=== PATIENT | male | born 1945 | race Caucasian/White ===

== ENCOUNTER 2017-06-27 09:26 | Outpatient (CLI) | payer MEDICARE, MEDICAID ==
--- NOTE | 2017-06-27 11:13 | RAD ---
PA AND LATERAL CHEST: History: Dyspnea. FINDINGS: Comparison is made with 01-21-16. The heart size is normal. The lungs are expanded without focal areas of consolidation, pneumothorax, or pleural effusions. There are degenerative changes of the spine. IMPRESSION: No radiographic evidence of acute cardiopulmonary process. POS: [facility]
== END 2017-06-27 09:27 | disposition home or self-care (01) ==
LOC: CP 09:26
PROVIDERS: ATTEND Internal Medicine Critical Care Medicine
DX: R06.09 Other forms of dyspnea (principal)
CPT/HCPCS: 71020; 94060; 94729

== ENCOUNTER 2017-07-30 12:44 | Outpatient (CLI) | payer MEDICARE, MEDICAID ==
--- NOTE | 2017-07-30 14:48 | CT ---
CT CHEST WITHOUT CONTRAST: HISTORY: R91.1 (pulmonary nodule). COMPARISON: Chest radiograph from 06/27/[address] from 10/16/2016. FINDINGS: Bilateral pulmonary nodules are unchanged. The largest nodule is in the posterior segment, left lowe r lobe, measuring under 7 mm, unchanged. No focal air space consolidation, pneumothorax, or effusion . No suspicious pulmonary nodule. No pericardial effusion. Moderate coronary artery calcifications. Small sliding hiatal hernia with posterior diaphragmatic hernia containing fat. There is a calcification in the posterior cortex, superior pole, left kidney, incompletely evaluated. Dense mitral annular calcifications. Moderate degenerative disk space disease, mid thoracic spine. Moderate degenerative disease of the glenohumeral joints and acromioclavicular joints. No displaced rib fracture. IMPRESSION: No significant change in the scattered pulmonary nodules. No new pulmonary nodule. No acute intrath oracic abnormality. POS: [facility]
== END 2017-07-30 12:45 | disposition home or self-care (01) ==
LOC: CT 12:44
PROVIDERS: ATTEND Internal Medicine Critical Care Medicine
DX: R91.1 Solitary pulmonary nodule (principal); R91.8 Other nonspecific abnormal finding of lung field
CPT/HCPCS: 71250

== ENCOUNTER 2017-08-26 12:11 | Emergency (ER) | payer MEDICARE, MEDICAID ==
--- NOTE | 2017-08-26 13:57 | RAD ---
RIGHT ELBOW 4 VIEWS: HISTORY: A 71-year-old male with a history of right elbow pain since Sunday. FINDINGS: Marked soft tissue swelling over the region of the olecranon with some scattered soft tissue calcific ation or ossification changes, probably certainly in part evidence for olecranon bursitis as well as some triceps tendon enthesophytic change. There are also prominent enthesophytic changes involving t he medial and lateral epicondylar regions and arthrosis changes of the elbow joint without acute frac ture or dislocation. IMPRESSION: Arthrosis and degenerative changes. Enthesophytic changes. Soft tissue swelling over the region of the olecranon with some scattered very minimal calcific or ossific changes within the soft tissue swe lling, possibly olecranon bursitis or other focal soft tissue swelling process. No acute fracture or dislocation. POS: [facility]
[2017-08-26] MEDS ORDERED: cefTRIAXone\\ROCEPHIN 1 GM VIAL IM SCH (14:00)
[2017-08-26] MEDS ORDERED: Lidocaine 1% PF 5 ML VIAL FS SCH (14:00)
[2017-08-26] MEDS ORDERED: Lidocaine 1% PF 5 ML VIAL ONE (14:17)
== END 2017-08-26 14:40 | disposition home or self-care (01) ==
LOC: ERS 12:11
DX: M25.521 Pain in right elbow (principal); E03.9 Hypothyroidism, unspecified; E78.5 Hyperlipidemia, unspecified; I10 Essential (primary) hypertension; F32.9 Major depressive disorder, single episode, unspecified; Z79.899 Other long term (current) drug therapy; Z79.82 Long term (current) use of aspirin
CPT/HCPCS: 96372; J0696; J2001

== ENCOUNTER 2017-10-08 11:55 | Outpatient (CLI) | payer MEDICARE, MEDICAID ==
--- NOTE | 2017-10-08 15:41 | CT ---
CT ANGIOGRAM ABDOMEN WITH IV CONTRAST AND 3D RECONSTRUCTIONS: Date: 10/08/17 HISTORY: Essential primary hypertension. Uncontrolled hypertension. Shortness of breath with exertion for w chao andujar. COMPARISON: None available. FINDINGS: There is scattered atherosclerotic vascular calcification seen in the abdominal aorta and visualized most proximal common iliac arteries. There are single patent bilateral renal arteries noted. There is mild narrowing at the origin of the celiac artery. The superior mesenteric artery is patent. There appears to be critical stenosis involving the origin of the inferior mesenteric artery. Only the most proximal common iliac arteries are imaged, which are normal in caliber where seen. There is minimal bibasilar atelectasis. The liver, spleen, pancreas, and bilateral kidneys demonstrate a normal CT appearance. There is mild, nonspecific thickening of the right adrenal gland without nodule or mass present. Degenerative changes are seen in the spine. There is a wedge-shaped compression fracture of the L1 ve rtebral body and the degree of height loss is stable compared to assembler molded frames image from CT chest on 7. Multilevel degenerative changes are seen in the visualized lumbar spine, and to a lesser degree, l ower thoracic spine. IMPRESSION: 1. Single patent bilateral renal arteries. 2. 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 The superior mesenteric artery is patent. 3. Tiny subcentimeter too small to characterize hypodense lesion inferior pole right kidney. Kidneys enhance symmetrically. POS: [facility]
[2017-10-08] MEDS ORDERED: Iopamidol 370 76% 100 ML VIAL ONE (16:45)
== END 2017-10-08 11:56 | disposition home or self-care (01) ==
LOC: CT 11:55
PROVIDERS: ATTEND Physician Assistant
DX: I10 Essential (primary) hypertension (principal); K55.1 Chronic vascular disorders of intestine; N28.89 Other specified disorders of kidney and ureter
CPT/HCPCS: 74175; 82565

== ENCOUNTER 2017-10-15 08:33 | Outpatient (CLI) | payer MEDICARE, MEDICAID ==
--- NOTE | 2017-10-15 12:13 | CT ---
NONCONTRAST CT OF THE THORAX: Date: 10/15/17 INDICATION: Follow-up pulmonary nodule. COMPARISON: CTA of the thorax dated 03/23/[address] of the thorax dated 07/30/17. FINDINGS: The 7.0 mm left lower lobe pulmonary nodule on image 37 of series 3 is stable to the comparison from March 2016. The additional smaller, sub-4 mm pulmonary nodules seen scattered throughout both teresa gs are stable. The most conspicuous is seen within the right middle lobe on image 33 of series 3. No new pulmonary nodules identified. There are moderately prominent mitral annular calcifications. There are moderate coronary artery calcifications. No pathologically enlarged lymph node is grossly eviden t. Visualized upper abdomen appears unchanged from the most recent comparison dated 07/30/17. There is scattered degenerative and osteoarthritic change. IMPRESSION: Stable scattered pulmonary nodules. A follow-up examination in 6 months is recommended for documentat ion of 2 year's worth of stability. POS: [facility]
== END 2017-10-15 08:34 | disposition home or self-care (01) ==
LOC: CT 08:33
PROVIDERS: ATTEND Internal Medicine Critical Care Medicine
DX: R91.1 Solitary pulmonary nodule (principal); R91.8 Other nonspecific abnormal finding of lung field
CPT/HCPCS: 71250

== ENCOUNTER 2018-09-20 00:38 | Outpatient (CLI) | payer MEDICARE, MEDICAID ==
[2018-09-20 10:51] LABS: #Eosinphils 0.2 thou/uL (0.0-0.7); #Lymphocytes 0.9 thou/uL (1.20-3.40); #Monocytes 0.6 thou/uL (0.11-0.59); #Neutrophils 5.8 thou/uL (1.40-6.50); %Eosinophils 3.3 % (0.0-10.0); %Lymphocytes 11.8 % (21.0-51.0); %Monocytes 7.3 % (0.0-10.0); %Neutrophils 77.6 % (42.0-75.0); Hemoglobin 15.7 g/dL (14.0-18.0); Mean Corpuscular HGB CONC 34.2 g/dL (32.0-36.0); Mean Corpuscular Hemoglobin 33.3 pg (27.0-31.0); Mean Corpuscular Volume 97.4 fL (78.0-98.0); Mean Platelet Volume 6.3 fL (7.4-10.4); Platelet Count 262 thou/uL (130-400); Red Blood Cell (RBC) Count 4.72 mill/uL (4.70-6.10); White Blood Cell (WBC) Count 7.5 thou/uL (4.8-10.8)
[2018-09-20 11:14] LABS: Anion Gap 19 mmol/L (10-20); BUN (Urea Nitrogen) 25 mg/dL (8.4-25.7); Calc. Creatinine Clearance 0 mL/min (70-130); Calcium 10.3 mg/dL (7.8-10.44); Carbon Dioxide 24 mmol/L (23-31); Chloride 86 mmol/L (98-107); Estimated GFR-MDRD 53; Glucose 92 mg/dL (80-115); Potassium 3.6 mmol/L (3.5-5.1); Sodium 125 mmol/L (136-145)
== END 2018-09-20 00:39 | disposition home or self-care (01) ==
LOC: LABBT 00:38
PROVIDERS: ATTEND Internal Medicine Cardiovascular Disease
DX: Z01.812 Encounter for preprocedural laboratory examination (principal); R06.02 Shortness of breath
CPT/HCPCS: 80048; 85025

== ENCOUNTER → 2018-09-23 | Day surgery (SDC) | payer MEDICARE, MEDICAID ==
[2018-09-20 10:15] VITALS: BMI 30.7
[~2018-09-23] MED LIST: Fentanyl 100 MCG/2 ML VIAL ONE; Heparin 10,000 UNITS/1 ML VIAL ONE; Iopamidol 370 76% 100 ML VIAL ONE; Midazolam HCl 2 mg/2 ml Vial ONE; Nitroglycerin 100MG/250ML BOT 250 ML ONE
== END ==
LOC: CCL 05:41
PROVIDERS: ATTEND Internal Medicine Cardiovascular Disease
PROC: 4A023N7 Measurement of Cardiac Sampling and Pressure, Left Heart, Percutaneous Approach (ICD-10-PCS; principal; 2018-09-23)
PROC: B2111ZZ Fluoroscopy of Multiple Coronary Arteries using Low Osmolar Contrast (ICD-10-PCS; 2018-09-23)
DX: I25.10 Atherosclerotic heart disease of native coronary artery without angina pectoris (principal); M10.9 Gout, unspecified; I10 Essential (primary) hypertension; K21.9 Gastro-esophageal reflux disease without esophagitis; F32.9 Major depressive disorder, single episode, unspecified; E78.00 Pure hypercholesterolemia, unspecified; Z79.82 Long term (current) use of aspirin; Z79.899 Other long term (current) drug therapy
CPT/HCPCS: 36415; 85347; 92978; 93458; 99152; 99153; C1753; C1769; C1887; J1644; J2250; J3010; Q9967

== ENCOUNTER 2018-10-14 08:42 | Outpatient (CLI) | payer MEDICARE, MEDICAID ==
--- NOTE | 2018-10-14 10:14 | RAD ---
TWO VIEWS CHEST: HISTORY: Dyspnea. FINDINGS: PA and lateral views of the chest are obtained on 10/14/2018. Comparison is made to previous exam fro m 01/21/2016. Two views chest demonstrate the lungs to be well aerated. No evidence of active intrathoracic diseas e is seen. No evidence of effusions, pneumonia, or pneumothorax seen. IMPRESSION: Unremarkable 2 views chest. POS: [facility]
== END 2018-10-14 08:43 | disposition home or self-care (01) ==
LOC: RAD 08:42
PROVIDERS: ATTEND Internal Medicine Critical Care Medicine
DX: R06.00 Dyspnea, unspecified (principal)
CPT/HCPCS: 71046

== ENCOUNTER 2020-04-29 07:35 | Outpatient (CLI) | payer MEDICARE, MEDICAID, OTHER ==
[2020-04-29 14:40] LABS: INR-International Normal Ratio 0.9; Prothrombin Time 12.8 sec (12.0-14.7)
[2020-04-29 15:02] LABS: #Basophils 0.1 thou/uL (0.0-0.2); #Eosinphils 0.4 thou/uL (0.0-0.7); #Monocytes 0.7 thou/uL (0.11-0.59); %Basophils 0.9 % (0.0-1.0); %Eosinophils 3.9 % (0.0-10.0); %Lymphocytes 10.6 % (21.0-51.0); %Monocytes 7.7 % (0.0-10.0); Hemoglobin 14.4 g/dL (14.0-18.0); Mean Corpuscular HGB CONC 35.8 g/dL (32.0-36.0); Mean Corpuscular Hemoglobin 35.4 pg (27.0-31.0); Mean Corpuscular Volume 99.1 fL (78.0-98.0); Mean Platelet Volume 7.2 fL (7.4-10.4); Platelet Count 342 thou/uL (130-400); RBC Distribution Width 13.2 % (11.5-14.5); Red Blood Cell (RBC) Count 4.05 mill/uL (4.70-6.10); White Blood Cell (WBC) Count 9.1 thou/uL (4.8-10.8)
[2020-04-29 15:19] LABS: Bilirubin Negative (Negative); Blood, Urine Trace (Negative); Clarity Clear (Clear); Glucose, Urine (Dipstick) Normal (Negative); Ketone, Urine Negative (Negative); Leukocyte Negative Leu/uL (Negative); Nitrite Negative (Negative); Protein, Urine (Dipstick) 30 mg/dL (Neg-Trace); RBC/HPF 0-3 HPF (0-3); Squamous Epithelial 0-3 HPF (0-3); Urobilinogen Normal mg/dL (Less than 2); WBC/HPF 0-3 HPF (0-3)
[2020-04-29 15:22] LABS: Anion Gap 18 mmol/L (10-20); BUN (Urea Nitrogen) 29 mg/dL (8.4-25.7); Calc. Creatinine Clearance 0 mL/min (70-130); Calcium 9.6 mg/dL (7.8-10.44); Carbon Dioxide 26 mmol/L (23-31); Chloride 92 mmol/L (98-107); Estimated GFR-MDRD 27; Glucose 120 mg/dL (83-110); Potassium 3.1 mmol/L (3.5-5.1); Sodium 133 mmol/L (136-145)
[2020-04-29 15:23] LABS: Bacteria/HPF 1+ HPF (None Seen)
--- NOTE | 2020-04-29 18:14 | EKG ---
Test Reason : PREOP Blood Pressure : / mmHG Vent. Rate : 087 BPM Atrial Rate : 087 BPM P-R Int : 186 ms QRS Dur : 088 ms QT Int : 374 ms P-R-T Axes : 042 -42 070 degrees QTc Int : 450 ms Normal sinus rhythm Left axis deviation Left ventricular hypertrophy with repolarization abnormality Abnormal ECG Confirmed by DR. Rose Marie CABAN (3) on 04/29/2020 6:13:27 PM Referred By: BRENDA Confirmed By:DR. Rose Marie CABAN
[2020-04-30 12:25] LABS: SARS-CoV-2 MS2 Positive; SARS-CoV-2 N Gene Negative; SARS-CoV-2 S Gene Negative; SARS-CoV-2 by NAA Not Detected (NotDetected); SARS-CoV-2 orf1ab Negative
== END 2020-04-29 07:36 | disposition home or self-care (01) ==
LOC: LABBT 07:35
PROVIDERS: ATTEND Orthopaedic Surgery
DX: Z01.818 Encounter for other preprocedural examination (principal); Z20.828 Contact with and (suspected) exposure to other viral communicable diseases; M17.11 Unilateral primary osteoarthritis, right knee
CPT/HCPCS: 80048; 81001; 85025; 85610; 87081; 93005; U0003; 87635; 93010

== ENCOUNTER 2020-04-29 11:00 | Inpatient (IN) | payer MEDICARE, MEDICAID, OTHER ==
[2020-05-03 13:40] VITALS: BMI 29.9
[2020-05-04] MEDS ORDERED: diphenhydrAMINE 25 MG CAP PO PRN (07:01)
[2020-05-04] MEDS ORDERED: Ondansetron PF 4 MG/2 ML Vial IVP PRN ×2 (07:01→09:30)
[2020-05-04] MEDS ORDERED: Promethazine HCl 25 MG/ML VIAL IM PRN ×2 (07:01→09:30)
[2020-05-04] MEDS ORDERED: Zolpidem Tartrate 5 MG TAB PO PRN ×2 (07:01→09:30)
[2020-05-04] MEDS ORDERED: HYDROcodone/Acetaminophen 10/325 mg Tablet PO PRN ×3 (07:01→09:30)
[2020-05-04] MEDS ORDERED: Acetaminophen 325 MG TAB PO PRN (07:01)
[2020-05-04] MEDS ORDERED: Vancomycin 1.5 GRAM/300 ML BAG ONE (07:37)
[2020-05-04] MEDS ORDERED: Sodium Chloride 0.9% 100 ML ONE (07:37)
[2020-05-04] MEDS ORDERED: Tranexamic Acid 1,000 MG/10 ML VIAL ONE (07:37)
[2020-05-04 08:25] LABS: Anion Gap 17 mmol/L (10-20); BUN (Urea Nitrogen) 23 mg/dL (8.4-25.7); Calc. Creatinine Clearance 50 mL/min (70-130); Calcium 10.1 mg/dL (7.8-10.44); Carbon Dioxide 28 mmol/L (23-31); Chloride 94 mmol/L (98-107); Estimated GFR-MDRD 36; Glucose 99 mg/dL (83-110); Sodium 136 mmol/L (136-145)
[2020-05-04 08:32] LABS: Potassium 2.7 mmol/L (3.5-5.1)
[2020-05-04] MEDS ORDERED: Ropivacaine 0.2% HCl/PF 20 ML ONE (08:33)
[2020-05-04] MEDS ORDERED: Fentanyl 100 MCG/2 ML VIAL ONE ×4 (08:33→12:12)
[2020-05-04] MEDS ORDERED: Midazolam HCl 2 mg/2 ml Vial ONE (08:33)
[2020-05-04] MEDS ORDERED: Lisinopril 20 MG TAB PO SCH (09:00)
[2020-05-04] MEDS ORDERED: Aspirin Chewable 81 MG TAB PO SCH (09:00)
[2020-05-04] MEDS ORDERED: Fenofibrate Nanocrystallized 145 MG TAB PO SCH (09:00)
[2020-05-04] MEDS ORDERED: Furosemide 20 MG TAB PO SCH (09:00)
[2020-05-04] MEDS ORDERED: Chlorthalidone 25 MG TAB PO SCH (09:00)
[2020-05-04] MEDS ORDERED: Fentanyl 100 MCG/2 ML VIAL IV PRN (09:23)
[2020-05-04] MEDS ORDERED: Ropivacaine HCl/PF 250 ML in Premix Bag 1 BAG NERVE BLCK SCH (09:30)
[2020-05-04] MEDS ORDERED: traMADol HCl 50 MG TAB PO PRN ×2 (09:30)
[2020-05-04] MEDS ORDERED: PROPOFOL 200 MG/20 ML VIAL ONE (12:42)
[2020-05-04] MEDS ORDERED: Dexamethasone 20 MG/5 ML VIAL ONE (12:42)
[2020-05-04] MEDS ORDERED: Lidocaine 1% PF 5 ML VIAL ONE (12:42)
[2020-05-04] MEDS ORDERED: EPHEDRINE 25 MG/5 ML SYRINGE ONE (12:42)
[2020-05-04] MEDS ORDERED: Bupivacaine HCl 0.5%/Epinephrine 1:200,000/PF 30 ml Vial ONE (12:42)
[2020-05-04] MEDS ORDERED: Ondansetron PF 4 MG/2 ML Vial ONE (12:42)
[2020-05-04] MEDS ORDERED: Ropivacaine 0.2% HCl/PF (40 MG/20 ML VIAL) ONE (12:42)
--- NOTE | 2020-05-04 13:13 | RAD ---
RIGHT KNEE 2 VIEWS: Date: 05/04/2020 HISTORY: Postop knee replacement. FINDINGS: Postop changes are noted. Knee prosthesis is noted. Components appear in adequate position and alignm ent. IMPRESSION: Postop right knee. POS: [facility]
[2020-05-04] MEDS ORDERED: Ketorolac Tromethamine 30 MG/ML VIAL IVP SCH (14:00)
[2020-05-04] MEDS ORDERED: CEFAZOLIN 2 GM in Premix Bag 1 BAG IVPB SCH ×2 (16:00→20:00)
--- NOTE | 2020-05-04 16:28 | OP ---
DATE OF PROCEDURE: 05/04/2020 This is Jose Antonio Sanchez PA-C dictating a report for Miguel Gracia MD. 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 PROCEDURE PERFORMED: Cemented cruciate-sparing computer-assisted navigated right total knee arthroplasty. [employer]ATIONS COORDINATOR: Jose Antonio Sanchez PA-C ANESTHESIA: General via LMA, augmented with indwelling adductor canal block and a single-shot sciatic block. COMPONENTS USED: [employer] Triathlon size 5 cemented cruciate-sparing femoral component with a cemented size 5 primary tibial base plate, 9-mm polyethylene fixed bearing insert, and a A35 patella button. FINDINGS: End-stage severe degenerative tricompartmental disease, [id number] arthrosis, periarticular osteophyte formation, large serous effusion consistent with gouty arthritis, hypertrophic synovium and degenerative changes consistent with a lateral compartment disease and degenerative genu valgum. ESTIMATED BLOOD LOSS: 100. TOURNIQUET TIME: 60 minutes. DRAINS: None. SPECIMENS: None. COMPLICATIONS: None. COUNTS: Correct. INPUT: 1000 mL crystalloid. OUTPUT: None measured. No Jacques placed. INDICATION FOR PROCEDURE: Kurtis is a 74-year-old white male, who has had progressive right knee pain walking for the last 5 to 7 years. He has failed conservative management and elected to proceed with total knee arthroplasty as definitive treatment of his pain. PROCEDURE IN DETAIL: After informed consent was obtained in the preoperative holding area, the patient was taken to the operative suite where general anesthesia was induced. Once adequate level of general anesthesia was obtained, the patient was positioned and a well-padded tourniquet was placed around the proximal thigh. The lower extremity was then prepped and draped in the usual sterile fashion. Prior to exsanguination, a time-out was called and all members of the surgical team agreed upon site, surgeon, and patient. The extremity was then exsanguinated and the tourniquet was raised. A midline longitudinal incision was then made directly over the patella extending 2 fingerbreadths above the superior pole of the patella and 2 fingerbreadths inferior to the inferior patellar pole of the patella. Deeper subcutaneous layers were dissected sharply and local bleeding was controlled with Bovie electrocautery. A quad tendon longitudinal split was then made sharply and a median parapatellar arthrotomy was carried out both sharp and with Bovie electrocautery, carried down to 1 fingerbreadth medial to the tibial tubercle. The knee was then placed into flexion and the patella was everted nicely, and a copious fat pad ectomy was performed, allowing for greater exposure of the tibia. The computer-assisted distal femoral fiducial was then placed and pinned firmly, and the distal femoral cutting guide was pinned firmly into place. The oscillating saw was then used to remove the appropriate amount of bone. The 4-in-1 cutting block was then placed on the distal femur and the oscillating saw was used to remove the appropriate amount of bone off the anterior, posterior, and chamfer cuts. After completion of bone cuts, the anterior cruciate ligament was resected sharply and the posterior cruciate ligament retractor was placed and the tibia was subluxed for better exposure. Partial meniscectomies were carried out, and the tibial computer-assisted fiducial was pinned, and the cutting guide was placed. Oscillating saw was then used to remove the bone, with Hohmann retractors used to take care and protect the collateral ligaments. After the tibial resection was performed, a laminar tax senior associate was placed in between the freshened bone cuts. The knee placed at 90 degrees and further bilateral meniscectomies were carried out, and the curved osteotome and curettage were used to remove any excess bone spurs in the posterior compartment. The trial femoral component, tibial baseplate were placed with the appropriate polyethylene trial insert with an appropriate polyethylene spacer and patellar button. The knee was taken through full range of motion with flexion and extension from 0 to 90 degrees and patellar broach squarely in the trochlea without any squinting or subluxation noted. The knee was also stable to varus and valgus stressing at 0, 15, 45, and 90 degrees of flexion. The drawer was negative. All trial components were then removed and the keel punch was used to provide the appropriate defect in the tibia with a mallet. The freshened bone cuts were copiously irrigated with pulsatile lavage of about 1.5 L to remove all excess debris. The freshened bone cuts were then dried with suction and lap sponge. The knee was placed in flexion and retractors were placed to provide access to all bone cuts. Tobramycin-impregnated methyl methacrylate cement was then placed on the freshened bone cuts and implants which were malleted firmly into place. Curettage and Mercedes elevators were used to remove any excess bone cement. The knee was placed into full extension and the patellar button was placed under compression, and the cement was allowed to cure. Once completed, the components were again taken through full range of motion and copious irrigation of the knee was carried out with another liter of normal saline. All components were inspected fully with full range of motion and varus and valgus stressing. There was no laxity noted and full extension was observed clinically. Primary closure was accomplished with #2 interrupted Vicryl stitch of the arthrotomy defect. This was oversewn with a #2 running Quill barbed stitch. The subcutaneous layer was then closed with a running 0 barbed Monocryl stitch and skin closure accomplished with a running subcuticular 3-0 Monocryl barbed Quill stitch and augmented with cement on the skin. Tourniquet was lowered. Good spontaneous return of distal pulses was noted clinically and a sterile dressing was applied to the incision. The procedure was terminated without any complications. The patient was awakened in the operative suite and taken to the recovery room in stable condition. The nutritional assistant surgeon helped throughout the procedure by positioning the patient, stabilizing the limb, holding retractors, aligning the prosthesis, and closure of procedure site. Job ID: [id number]
[2020-05-04] MEDS: hydrALAZINE 25 MG TAB PO SCH ×2 (17:13→20:43)
[2020-05-04] MEDS: Aspirin 81 mg Enteric Coated Tablet PO SCH ×2 (17:13→20:43)
[2020-05-04] MEDS: Sodium Chloride 0.9% 1,000 ML IV SCH ×2 (17:13→17:35)
[2020-05-04] MEDS: Amlodipine 10 MG TAB PO SCH (17:13)
[2020-05-04] MEDS: hydrOXYzine 25 MG TAB PO SCH (17:14)
[2020-05-04 17:22] LABS: Anion Gap 12 mmol/L (10-20); BUN (Urea Nitrogen) 23 mg/dL (8.4-25.7); Calc. Creatinine Clearance 47 mL/min (70-130); Calcium 9.3 mg/dL (7.8-10.44); Carbon Dioxide 31 mmol/L (23-31); Chloride 94 mmol/L (98-107); Estimated GFR-MDRD 34; Glucose 242 mg/dL (83-110); Sodium 134 mmol/L (136-145)
[2020-05-04 17:44] LABS: Magnesium 0.8 mg/dL (1.6-2.6); Potassium 2.7 mmol/L (3.5-5.1)
--- NOTE | 2020-05-04 19:20 | CON ---
DATE OF CONSULTATION: 05/04/2020 CONSULTING PHYSICIAN: Dr. Gracia. REASON FOR CONSULTATION: KOFI on CKD and hypokalemia. REASON FOR ADMISSION: Elective surgery for knee replacement. HISTORY OF PRESENT ILLNESS: This is a male with a history of coronary artery disease, hypertension, hypothyroidism, CKD, came to the hospital for elective surgery and found to be hypokalemic and elevated creatinine, nephrology consulted. The patient was on lisinopril and also on Lasix, which is stopped now. He was found to have potassium of 2.7. The patient denies any symptoms. No nausea or vomiting. No chest pain or palpitation. I saw him after surgery and he is doing reasonably well. . No chest pain or palpitation. No fever or chills. No nausea or vomiting. PAST MEDICAL HISTORY: Positive for; 1. Coronary artery disease. 2. Hypertension. 3. Hyperlipidemia. 4. Hypothyroidism. 5. Depression. 6. GERD. PAST SURGICAL HISTORY: 1. Appendectomy. 2. Knee replacement. HOME MEDICATIONS: Reviewed. ALLERGIES: NO KNOWN DRUG ALLERGIES. SOCIAL HISTORY: No smoking, alcohol, or illicit drug use. FAMILY HISTORY: No history of kidney disease. REVIEW OF SYSTEMS: CONSTITUTIONAL: Negative for weight loss or gain, ability to conduct usual activities. SKIN: Negative for rash, itching. EYES: Negative for double vision, pain. ENT/MOUTH: Negative for nose bleeding, neck stiffness, pain, tenderness. CARDIOVASCULAR: Negative for palpitations, dyspnea on exertion, orthopnea. RESPIRATORY: Negative for shortness of breath, wheezing, cough, hemoptysis, fever or night sweats. GASTROINTESTINAL: Negative for poor appetite, abdominal pain, heartburn, nausea, vomiting, constipation, or diarrhea. GENITOURINARY: Negative for urgency, frequency, dysuria, nocturia. MUSCULOSKELETAL: Negative for pain, swelling. NEUROLOGIC/PSYCHIATRIC: Negative for anxiety, depression. ALLERGY/IMMUNOLOGIC: Negative for skin rash, bleeding tendency. PHYSICAL EXAMINATION: GENERAL: This is a well-built male, in no apparent distress. VITAL SIGNS: Reviewed. HEENT: Atraumatic, normocephalic. Oral mucosa moist. NECK: Supple. CV: S1, S2 heard. Rate and rhythm regular. RESPIRATORY: Clear. GI: Abdomen is soft. MUSCULOSKELETAL: No edema. DERMATOLOGIC: No skin rash. NEUROLOGIC: Alert and awake. PSYCHIATRIC: Mood and affect normal. LABORATORY DATA: Potassium 2.7, BUN is 23, creatinine is 1.86. ASSESSMENT AND PLAN: 1. Acute kidney injury on chronic kidney disease stage 3. His baseline creatinine seems to be around 1 to 1.3, was 2.3 five days back, and now 1.86. Agree with hydration for now. I will stop Lasix and I will recheck labs this evening. Potassium remains low. We need to replace it. 2. Hypokalemia. We will replace. 3. We will check magnesium also, some mild hypercalcemia. 4. Edema, controlled. 5. History of hypertension. 6. History of coronary artery disease. PLAN: Plan is to stop Lasix and lisinopril, and continue IV hydration if tolerated with close monitoring of cardiorespiratory status. We will continue to monitor. Recheck labs in the morning. We will check magnesium too. Thank you for the consult. We will follow the case along with you. Job ID: [id number]
[2020-05-04] MEDS ORDERED: Potassium Chloride 20 MEQ TAB PO SCH (19:30)
[2020-05-04] MEDS ORDERED: Magnesium Sulfate 3 GM in Sodium Chloride 0.9% 100 ML IVPB SCH (20:00)
[2020-05-04] MEDS: Atorvastatin Calcium 10 MG TAB PO SCH (20:43)
[2020-05-04] MEDS ORDERED: Potassium Chloride 40 MEQ in Sodium Chloride 0.9% 250 ML 250 ML IVPB SCH (21:00)
[2020-05-05] MEDS ORDERED: CEFAZOLIN 2 GM in Premix Bag 1 BAG IVPB SCH (02:00)
[2020-05-05 04:16] LABS: Hemoglobin 11.4 g/dL (14.0-18.0); Mean Corpuscular HGB CONC 34.2 g/dL (32.0-36.0); Mean Corpuscular Hemoglobin 34.9 pg (27.0-31.0); Mean Platelet Volume 6.9 fL (7.4-10.4); Platelet Count 231 thou/uL (130-400); RBC Distribution Width 13.1 % (11.5-14.5); Red Blood Cell (RBC) Count 3.28 mill/uL (4.70-6.10); White Blood Cell (WBC) Count 14.5 thou/uL (4.8-10.8)
[2020-05-05 04:38] LABS: Anion Gap 13 mmol/L (10-20); BUN (Urea Nitrogen) 23 mg/dL (8.4-25.7); Calc. Creatinine Clearance 54 mL/min (70-130); Calcium 8.9 mg/dL (7.8-10.44); Carbon Dioxide 28 mmol/L (23-31); Chloride 97 mmol/L (98-107); Estimated GFR-MDRD 40; Glucose 112 mg/dL (83-110); Sodium 135 mmol/L (136-145)
[2020-05-05 04:42] LABS: Potassium 2.8 mmol/L (3.5-5.1)
[2020-05-05] MEDS ORDERED: Potassium Chloride 20 MEQ TAB PO SCH ×3 (05:30→21:00)
[2020-05-05] MEDS: Levothyroxine Sodium 25 MCG TAB PO SCH (05:41)
[2020-05-05] MEDS: HYDROcodone/Acetaminophen 10/325 mg Tablet PO PRN ×2 (06:42→14:21)
[2020-05-05] MEDS ORDERED: Magnesium Sulfate 3 GM in Sodium Chloride 0.9% 100 ML IVPB SCH (07:15)
[2020-05-05] MEDS ORDERED: Potassium Chloride 40 MEQ in Sodium Chloride 0.9% 250 ML 250 ML IVPB SCH (07:30)
[2020-05-05] MEDS: Aspirin 81 mg Enteric Coated Tablet PO SCH ×2 (08:40→20:27)
[2020-05-05] MEDS: Ferrous Gluconate 324 MG TAB PO SCH ×2 (08:40→18:23)
[2020-05-05] MEDS: hydrOXYzine 25 MG TAB PO SCH (08:40)
[2020-05-05] MEDS: Multivitamin W/ Minerals 1 TAB PO SCH (08:41)
[2020-05-05] MEDS: Senokot S 8.6-50 MG TAB PO SCH ×2 (08:41→20:28)
[2020-05-05] MEDS: Amlodipine 10 MG TAB PO SCH (08:43)
[2020-05-05] MEDS: hydrALAZINE 25 MG TAB PO SCH ×2 (08:44→20:28)
--- NOTE | 2020-05-05 10:57 | PRG ---
DATE OF SERVICE: 05/05/2020 SUBJECTIVE: Patient was seen and examined at bedside and overnight events noted. Patient denies any shortness of breath or chest pain or palpitation. No history of nausea or vomiting or diarrhea or fever or chills or cramps. OBJECTIVE: GENERAL: This is a well-built male, in no apparent distress. VITAL SIGNS: Temperature 98.0. Heart rate 74. Respiratory rate 18. Blood pressure 134/72. HEENT: Atraumatic, normocephalic. Oral mucosa is moist. NECK: Supple. CARDIOVASCULAR: S1, S2 heard. Rate and rhythm regular. RESPIRATORY: Clear to auscultation. GASTROINTESTINAL: Abdomen is soft. MUSCULOSKELETAL: No tenderness. No edema. DERMATOLOGIC: No skin rash. NEUROLOGIC: Alert and awake and oriented x3. No focal neurologic deficits. Moving all the extremities. PSYCHIATRIC: Mood and affect normal. LABORATORY DATA: Potassium 2.8, BUN is 73, creatinine is 1.70, and magnesium 1.2. ASSESSMENT AND PLAN: 1. Acute kidney injury on chronic kidney disease, stage 3. Renal function is stable, getting better. We will reduce IV fluids . 2. Severe hypokalemia. Agree with replacement. We will recheck labs. 3. Severe hypomagnesemia, better. We will replace magnesium. 4. Edema, controlled. 5. History of hypertension. 6. History of coronary artery disease. We will reduce IV fluids and replace potassium and magnesium. We will check phosphorus level too. Job ID: [id number]
[2020-05-05] MEDS: Sodium Chloride 0.9% 1,000 ML IV SCH ×2 (14:23→18:26)
[2020-05-05 17:02] LABS: Anion Gap 14 mmol/L (10-20); BUN (Urea Nitrogen) 24 mg/dL (8.4-25.7); Calc. Creatinine Clearance 54 mL/min (70-130); Calcium 8.9 mg/dL (7.8-10.44); Carbon Dioxide 25 mmol/L (23-31); Chloride 100 mmol/L (98-107); Estimated GFR-MDRD 40; Glucose 156 mg/dL (83-110); Magnesium 1.8 mg/dL (1.6-2.6); Potassium 3.6 mmol/L (3.5-5.1); Sodium 135 mmol/L (136-145)
[2020-05-05 17:09] LABS: Phosphorus 1.4 mg/dL (2.3-4.7)
[2020-05-05] MEDS ORDERED: Potassium Phosphate 40 MMOL in Sodium Chloride 0.9% 500 ML IVPB SCH (18:00)
[2020-05-05] MEDS ORDERED: hydrOXYzine 25 MG TAB PO SCH (20:00)
[2020-05-05] MEDS: Atorvastatin Calcium 10 MG TAB PO SCH (20:27)
[2020-05-06] MEDS: Levothyroxine Sodium 25 MCG TAB PO SCH (04:08)
[2020-05-06 06:15] LABS: Anion Gap 11 mmol/L (10-20); BUN (Urea Nitrogen) 21 mg/dL (8.4-25.7); Calc. Creatinine Clearance 64 mL/min (70-130); Calcium 8.5 mg/dL (7.8-10.44); Carbon Dioxide 29 mmol/L (23-31); Chloride 98 mmol/L (98-107); Estimated GFR-MDRD 48; Glucose 117 mg/dL (83-110); Magnesium 1.6 mg/dL (1.6-2.6); Potassium 3.1 mmol/L (3.5-5.1); Sodium 135 mmol/L (136-145)
[2020-05-06 06:42] LABS: Phosphorus 2.9 mg/dL (2.3-4.7)
[2020-05-06] MEDS: hydrALAZINE 25 MG TAB PO SCH (08:21)
[2020-05-06] MEDS: Ferrous Gluconate 324 MG TAB PO SCH (08:21)
[2020-05-06] MEDS: Aspirin 81 mg Enteric Coated Tablet PO SCH (08:21)
[2020-05-06] MEDS: Amlodipine 10 MG TAB PO SCH (08:22)
[2020-05-06] MEDS: Multivitamin W/ Minerals 1 TAB PO SCH (08:22)
[2020-05-06] MEDS: Senokot S 8.6-50 MG TAB PO SCH (08:22)
[2020-05-06] MEDS: hydrOXYzine 25 MG TAB PO SCH (08:22)
[2020-05-06] MEDS: HYDROcodone/Acetaminophen 10/325 mg Tablet PO PRN ×2 (08:23→14:48)
[2020-05-06] MEDS ORDERED: Potassium Chloride 20 MEQ TAB PO SCH (09:00)
[2020-05-06] MEDS ORDERED: hydrOXYzine 25 MG TAB PO SCH (09:00)
[2020-05-06] MEDS ORDERED: Magnesium 2 GM/50 ML 2 GM in Premix Bag 1 BAG IVPB SCH (10:15)
[2020-05-06] MEDS ORDERED: Magnesium Sulfate 2 GM in Sodium Chloride 0.9% 100 ML IVPB SCH (10:15)
--- NOTE | 2020-05-06 11:55 | PRG ---
DATE OF SERVICE: 05/06/2020 SUBJECTIVE: Patient was seen and examined at bedside and overnight events noted. Patient denies any shortness of breath or chest pain or palpitation. No history of nausea or vomiting or diarrhea or fever or chills or cramps. OBJECTIVE: GENERAL: This is well-built male in no apparent distress. VITAL SIGNS: Temperature 99.4. Heart Rate 70. Respiratory rate 16. Blood pressure 155/80. HEENT: Atraumatic, normocephalic. Oral mucosa is moist. NECK: Supple. CARDIOVASCULAR: S1, S2 heard. Rate and rhythm regular. RESPIRATORY: Clear to auscultation. GASTROINTESTINAL: Abdomen is soft. MUSCULOSKELETAL: No tenderness. No edema. DERMATOLOGIC: No skin rash. NEUROLOGIC: Alert and awake and oriented x3. No focal neurologic deficits. Moving all the extremities. PSYCHIATRIC: Mood and affect normal. LABORATORY DATA: Potassium 3.1, BUN is 21, creatinine is 1.4. ASSESSMENT AND PLAN: 1. Acute kidney injury on chronic kidney disease, stage 3. Labs are much better. 2. Hypokalemia. Continue on supplements. 3. Severe hypomagnesemia. 4. Hypophosphatemia, replaced. 5. Hypertension. 6. History of coronary artery disease. Replaced electrolytes, and we will replace magnesium and potassium today. Recheck labs in the morning. We will follow. Job ID: [id number]
[2020-05-06 15:03] VITALS: BP 146/77; TEMP 98.1
--- NOTE | 2020-05-07 15:08 | DIS ---
DATE OF ADMISSION: 05/04/2020 DATE OF DISCHARGE: 05/06/2020 DISCHARGE DISPOSITION: To home. ADMISSION DIAGNOSIS: End-stage tricompartmental osteoarthritis, right knee. DISCHARGE DIAGNOSIS: End-stage tricompartmental osteoarthritis, right knee. OPERATIVE PROCEDURE: Right total knee arthroplasty. CONSULTANTS: [facility] [facility] and hospitalist for medical management. BRIEF CLINICAL HISTORY: The patient was admitted to [facility] and underwent the above elective procedure on the date of admission without intra-, missy-, or postoperative complication. The hospital course was unremarkable. At the time of discharge, the patient is afebrile, ambulatory without assistance utilizing a rolling walker in a full weightbearing fashion, tolerating a regular diet, and voiding without difficulty. The patient's incision is clean and closed without any erythema. DISCHARGE MEDICATIONS: Please see medication reconciliation form. We will be happy to see the patient on an as-needed basis between now and the patient's next scheduled appointment. CONDITION ON DISCHARGE: Stable. PROGNOSIS: Good. The metal forger's assistant surgeon helped throughout the procedure by positioning the patient, stabilizing the limb, holding retractors, aligning the prosthesis, and closure of procedure site. Job ID: [id number]
== END 2020-05-06 15:05 | disposition home or self-care (01) | DRG 470 ==
LOC: SJJU 05-04 06:16
PROVIDERS: ADMIT Orthopaedic Surgery; ATTEND Orthopaedic Surgery
PROC: 0SRC0J9 Replacement of Right Knee Joint with Synthetic Substitute, Cemented, Open Approach (ICD-10-PCS; principal; 2020-05-04)
PROC: 8E0YXBZ Computer Assisted Procedure of Lower Extremity (ICD-10-PCS; 2020-05-04)
DX: M17.11 Unilateral primary osteoarthritis, right knee (principal); N17.9 Acute kidney failure, unspecified; M21.061 Valgus deformity, not elsewhere classified, right knee; Z20.828 Contact with and (suspected) exposure to other viral communicable diseases; I25.10 Atherosclerotic heart disease of native coronary artery without angina pectoris; E78.5 Hyperlipidemia, unspecified; F32.9 Major depressive disorder, single episode, unspecified; E87.6 Hypokalemia; I12.9 Hypertensive chronic kidney disease with stage 1 through stage 4 chronic kidney disease, or unspecified chronic kidney disease; N18.30 Chronic kidney disease, stage 3 unspecified; E83.52 Hypercalcemia; E83.42 Hypomagnesemia; E83.39 Other disorders of phosphorus metabolism; Z79.899 Other long term (current) drug therapy; Z79.890 Hormone replacement therapy; Z79.82 Long term (current) use of aspirin; M10.9 Gout, unspecified
CPT/HCPCS: 36415; 80048; 83735; 84100; 85027; C1713; C1776; J0690; J1100; J2250; J2405; J2704; J2795; J3010; J3370; J3475; J3480; J3490; J7030; J7050; Q0163

== ENCOUNTER 2020-09-14 09:48 | Day surgery (SDC) | payer MEDICARE, MEDICAID ==
[2020-09-13 10:22] VITALS: BMI 30.7
[2020-09-14] MEDS ORDERED: Vancomycin 1.5 GRAM/300 ML BAG ONE (10:19)
[2020-09-14] MEDS ORDERED: Tranexamic Acid 1,000 MG/10 ML VIAL ONE (10:19)
[2020-09-14] MEDS ORDERED: Bupivacaine HCl 0.5%/Epinephrine 1:200,000/PF 30 ml Vial ONE (10:29)
[2020-09-14] MEDS ORDERED: ePHEDrine 50 MG/ML VIAL ONE (10:29)
[2020-09-14] MEDS ORDERED: Ropivacaine 2% HCl/PF (20 MG/10 ML VIAL) ONE (10:29)
[2020-09-14] MEDS ORDERED: Dexamethasone 20 MG/5 ML VIAL ONE (10:29)
[2020-09-14] MEDS ORDERED: PROPOFOL 200 MG/20 ML VIAL ONE (10:29)
[2020-09-14] MEDS ORDERED: Lidocaine 1% PF 5 ML VIAL ONE (10:29)
[2020-09-14] MEDS ORDERED: PHENYLEPHRINE-NS 100 MCG/ML 10 ML SYRINGE ONE (10:29)
[2020-09-14] MEDS ORDERED: Ondansetron PF 4 MG/2 ML Vial ONE (10:29)
[2020-09-14] MEDS ORDERED: Fentanyl 100 MCG/2 ML VIAL ONE ×5 (11:02→18:24)
[2020-09-14] MEDS ORDERED: Midazolam HCl 2 mg/2 ml Vial ONE (11:02)
[2020-09-14] MEDS ORDERED: EPINEPHrine 1 MG/ML AMP ONE (11:03)
[2020-09-14] MEDS ORDERED: Ondansetron PF 4 MG/2 ML Vial IVP PRN ×2 (11:09→11:45)
[2020-09-14] MEDS ORDERED: Acetaminophen 325 MG TAB PO PRN (11:09)
[2020-09-14] MEDS ORDERED: Zolpidem Tartrate 5 MG TAB PO PRN ×2 (11:09→11:45)
[2020-09-14] MEDS ORDERED: diphenhydrAMINE 25 MG CAP PO PRN (11:09)
[2020-09-14] MEDS ORDERED: HYDROcodone/Acetaminophen 10/325 mg Tablet PO PRN ×3 (11:09→11:45)
[2020-09-14] MEDS ORDERED: Promethazine HCl 25 MG/ML VIAL IM PRN ×2 (11:09→11:45)
[2020-09-14] MEDS ORDERED: Fentanyl 100 MCG/2 ML VIAL IV PRN (11:44)
[2020-09-14] MEDS ORDERED: traMADol HCl 50 MG TAB PO PRN ×2 (11:45)
[2020-09-14] MEDS ORDERED: Ketorolac Tromethamine 30 MG/ML VIAL IVP PRN (11:45)
[2020-09-14] MEDS ORDERED: Ropivacaine HCl/PF 250 ML in Premix Bag 1 BAG NERVE BLCK SCH (11:45)
--- NOTE | 2020-09-14 13:35 | OP ---
DATE OF PROCEDURE: 09/14/2020 TITLE OF PROCEDURE: Left total knee arthroplasty using [place] Triathlon 5 femur, 5 tibia, 11 mm CS X3 polyethylene, and A35 patella. HOSIERY MATER: Hernandez. BLOOD LOSS: Minimal. SPECIMENS: None. DRAINS: None. COMPLICATIONS: None. The financial assistant/co-surgeon was present through the entire procedure and was responsible for providing exposure, tissue retraction and any necessary limb or tissue manipulation required to obtain necessary reduction or hardware placement. The financial assistant/co-surgeon also provided bleeding control, tissue closure, and suturing in conjunction with the primary surgeon. DESCRIPTION OF PROCEDURE: After informed consent was obtained in the preoperative holding area, the patient was taken to the operative suite where general anesthesia was induced. Once adequate level of general anesthesia was obtained, the patient was positioned and a well-padded tourniquet was placed around the left proximal thigh. The left lower extremity was then prepped and draped in the usual sterile fashion. Prior to exsanguination, a time-out was called and all members of the surgical team agreed upon site, surgeon, and patient. The extremity was then exsanguinated and the tourniquet was raised. A midline longitudinal incision was then made directly over the patella extending 2 fingerbreadths above the superior pole of the patella and 2 fingerbreadths inferior to the inferior patellar pole of the patella. Deeper subcutaneous layers were dissected sharply and local bleeding was controlled with Bovie electrocautery. A quad tendon longitudinal split was then made sharply and a median parapatellar arthrotomy was carried out both sharp and with Bovie electrocautery, carried down to 1 fingerbreadth medial to the tibial tubercle. The knee was then placed into flexion and the patella was everted nicely, and a copious fat pad ectomy was performed allowing for greater exposure of the tibia. The computer-assisted distal femoral fiducial was then placed and pinned firmly, and the distal femoral cutting guide was pinned firmly into place. The oscillating saw was then used to remove the appropriate amount of bone. The 4-in-1 cutting block was then placed on the distal femur and the oscillating saw was used to remove the appropriate amount of bone off the anterior, posterior, and chamfer cuts. After completion of bone cuts, the anterior cruciate ligament was resected sharply and the posterior cruciate ligament retractor was placed and the tibia was subluxed for better exposure. Partial meniscectomies were carried out, and the tibial computer-assisted fiducial was pinned, and the cutting guide was placed. Oscillating saw was then used to remove the bone, with Hohmann retractors used to take care and protect the collateral ligaments. After the tibial resection was performed, a laminar laundry aide was placed in between the freshened bone cuts. The knee placed at 90 degrees and further bilateral meniscectomies were carried out, and the curved osteotome and curettage were used to remove any excess bone spurs in the posterior compartment. The trial femoral component, tibial baseplate were placed with the appropriate polyethylene trial insert with an appropriate polyethylene spacer and patellar button. The knee was taken through full range of motion with flexion and extension from 0 to 90 degrees and patellar broach squarely in the trochlea without any squinting or subluxation noted. The knee was also stable to varus and valgus stressing at 0, 15, 45, and 90 degrees of flexion. The drawer was negative. All trial components were then removed and the keel punch was used to provide the appropriate defect in the tibia with a mallet. The freshened bone cuts were copiously irrigated with pulsatile lavage of about 1.5 L to remove all excess debris. The freshened bone cuts were then dried with suction and lap sponge. The knee was placed in flexion and retractors were placed to provide access to all bone cuts. Tobramycin-impregnated methyl methacrylate cement was then placed on the freshened bone cuts and implants which were malleted firmly into place. Curettage and [place] elevators were used to remove any excess bone cement. The knee was placed into full extension and the patellar button was placed under compression, and the cement was allowed to cure. Once completed, the components were again taken through full range of motion and copious irrigation of the knee was carried out with another liter of normal saline. All components were inspected fully with full range of motion and varus and valgus stressing. There was no laxity noted and full extension was observed clinically. Primary closure was accomplished with #2 interrupted Vicryl stitch of the arthrotomy defect. This was oversewn with a #2 running Quill barbed stitch. The gravitational platelet system was then injected into the arthrotomy prior to closure. The subcutaneous layer was then closed with a running 0 barbed Monocryl stitch and skin closure accomplished with a running subcuticular 3-0 Monocryl barbed Quill stitch and augmented with cement on the skin. Tourniquet was lowered. Good spontaneous return of distal pulses was noted clinically and a sterile dressing was applied to the incision. The procedure was terminated without any complications. The patient was awakened in the operative suite and the was removed, and the patient was taken to the recovery room in stable condition. Job ID: [id number]
[2020-09-14] MEDS ORDERED: Ropivacaine 0.2% 550 ML 550 ML NERVE BLCK SCH (14:30)
--- NOTE | 2020-09-14 14:53 | RAD ---
Exam: XR Knee Lt 2 View HISTORY: Postop total knee replacement. COMPARISON: None FINDINGS: Postoperative changes related to left total knee replacement are noted. No hardware complication is s een. Subcutaneous emphysema is seen anterior to the knee and lower proximal thigh. There is evidence of a suprapatellar joint effusion. No fracture or dislocation is seen. IMPRESSION: Postoperative changes related to recent left total knee replacement.
[2020-09-14] MEDS: CEFAZOLIN 2 GM in Premix Bag 1 BAG IVPB SCH (19:48)
[2020-09-14] MEDS: Sodium Chloride 0.9% 1,000 ML IV SCH (19:49)
[2020-09-14] MEDS: Ferrous Gluconate 324 MG TAB PO SCH (21:52)
[2020-09-14] MEDS: Indomethacin 25 mg Capsule PO SCH (21:52)
[2020-09-14] MEDS: hydrALAZINE 25 MG TAB PO SCH (21:52)
[2020-09-14] MEDS: Senokot S 8.6-50 MG TAB PO SCH (21:52)
[2020-09-14] MEDS: Atorvastatin Calcium 10 MG TAB PO SCH (21:52)
[2020-09-14] MEDS: Aspirin 81 mg Enteric Coated Tablet PO SCH (21:52)
[2020-09-15] MEDS: Sodium Chloride 0.9% 1,000 ML IV SCH ×3 (01:59→17:15)
[2020-09-15] MEDS ORDERED: HYDROcodone/Acetaminophen 10/325 mg Tablet ONE (03:28)
[2020-09-15] MEDS: CEFAZOLIN 2 GM in Premix Bag 1 BAG IVPB SCH (03:46)
[2020-09-15] MEDS: HYDROcodone/Acetaminophen 10/325 mg Tablet PO PRN ×3 (03:47→20:46)
[2020-09-15] MEDS ORDERED: diphenhydrAMINE 25 MG CAP ONE (03:55)
[2020-09-15 08:08] LABS: Hemoglobin 12.1 g/dL (14.0-18.0); Mean Corpuscular HGB CONC 33.8 g/dL (32.0-36.0); Mean Corpuscular Hemoglobin 33.2 pg (27.0-31.0); Mean Corpuscular Volume 98.4 fL (78.0-98.0); Mean Platelet Volume 6.8 fL (7.4-10.4); Platelet Count 282 thou/uL (130-400); RBC Distribution Width 12.6 % (11.5-14.5); Red Blood Cell (RBC) Count 3.66 mill/uL (4.70-6.10); White Blood Cell (WBC) Count 15.3 thou/uL (4.8-10.8)
[2020-09-15] MEDS ORDERED: Multivitamin W/ Minerals 1 TAB PO SCH (09:00)
[2020-09-15] MEDS ORDERED: Aspirin 81 mg Enteric Coated Tablet PO SCH (09:00)
[2020-09-15] MEDS: Potassium Bicarbonate/Cit Ac 20 MEQ TAB PO SCH (09:45)
[2020-09-15] MEDS: Cyanocobalamin (Vitamin B-12) 1,000 MCG TAB PO SCH (09:45)
[2020-09-15] MEDS: Chlorthalidone 25 MG TAB PO SCH (09:46)
[2020-09-15] MEDS: Amlodipine 10 MG TAB PO SCH (09:46)
[2020-09-15] MEDS: Furosemide 20 MG TAB PO SCH (09:47)
[2020-09-15] MEDS: Indomethacin 25 mg Capsule PO SCH ×2 (09:48→20:47)
[2020-09-15] MEDS: Multivitamin W/ Minerals 1 TAB PO SCH (09:48)
[2020-09-15] MEDS: hydrOXYzine 25 MG TAB PO SCH (09:48)
[2020-09-15] MEDS: Lisinopril 20 MG TAB PO SCH (09:49)
[2020-09-15] MEDS: Levothyroxine Sodium 25 MCG TAB PO SCH (09:49)
[2020-09-15] MEDS: Fenofibrate Nanocrystallized 145 MG TAB PO SCH (09:50)
[2020-09-15] MEDS: Cholecalciferol 1,000 UNITS (25 MCG) TAB PO SCH (09:50)
[2020-09-15] MEDS: Ferrous Gluconate 324 MG TAB PO SCH ×2 (09:50→22:20)
[2020-09-15] MEDS: hydrALAZINE 25 MG TAB PO SCH ×2 (09:50→20:47)
[2020-09-15] MEDS: Aspirin 81 mg Enteric Coated Tablet PO SCH ×2 (09:50→20:47)
[2020-09-15] MEDS: Magnesium Oxide 400 MG TAB PO SCH (09:52)
[2020-09-15] MEDS: Senokot S 8.6-50 MG TAB PO SCH ×2 (10:03→20:47)
[2020-09-15] MEDS: Atorvastatin Calcium 10 MG TAB PO SCH (20:47)
[2020-09-16] MEDS: Sodium Chloride 0.9% 1,000 ML IV SCH ×2 (02:40→13:31)
[2020-09-16] MEDS: Levothyroxine Sodium 25 MCG TAB PO SCH (05:21)
[2020-09-16 05:43] LABS: Hemoglobin 10.1 g/dL (14.0-18.0); Mean Corpuscular Hemoglobin 33.4 pg (27.0-31.0); Mean Platelet Volume 7.3 fL (7.4-10.4); Platelet Count 224 thou/uL (130-400); RBC Distribution Width 12.5 % (11.5-14.5); Red Blood Cell (RBC) Count 3.02 mill/uL (4.70-6.10); White Blood Cell (WBC) Count 9.7 thou/uL (4.8-10.8)
[2020-09-16] MEDS: Fenofibrate Nanocrystallized 145 MG TAB PO SCH (08:43)
[2020-09-16] MEDS: Multivitamin W/ Minerals 1 TAB PO SCH (08:43)
[2020-09-16] MEDS: Indomethacin 25 mg Capsule PO SCH (08:43)
[2020-09-16] MEDS: Cholecalciferol 1,000 UNITS (25 MCG) TAB PO SCH (08:44)
[2020-09-16] MEDS: Potassium Bicarbonate/Cit Ac 20 MEQ TAB PO SCH (08:44)
[2020-09-16] MEDS: Senokot S 8.6-50 MG TAB PO SCH (08:44)
[2020-09-16] MEDS: Magnesium Oxide 400 MG TAB PO SCH (08:44)
[2020-09-16] MEDS: Chlorthalidone 25 MG TAB PO SCH (08:45)
[2020-09-16] MEDS: Ferrous Gluconate 324 MG TAB PO SCH (08:45)
[2020-09-16] MEDS: Lisinopril 20 MG TAB PO SCH (08:45)
[2020-09-16] MEDS: Amlodipine 10 MG TAB PO SCH (08:45)
[2020-09-16] MEDS: Aspirin 81 mg Enteric Coated Tablet PO SCH (08:45)
[2020-09-16] MEDS: Furosemide 20 MG TAB PO SCH (08:46)
[2020-09-16] MEDS: Cyanocobalamin (Vitamin B-12) 1,000 MCG TAB PO SCH (08:46)
[2020-09-16] MEDS: hydrOXYzine 25 MG TAB PO SCH (08:46)
[2020-09-16] MEDS: hydrALAZINE 25 MG TAB PO SCH (08:46)
[2020-09-16 12:34] VITALS: BP 167/89; TEMP 98
[2020-09-16] MEDS: HYDROcodone/Acetaminophen 10/325 mg Tablet PO PRN (14:18)
--- NOTE | 2020-09-17 14:58 | DIS ---
DATE OF ADMISSION: 09/14/2020 DATE OF DISCHARGE: 09/16/2020 This is Cari Glaser PA-C dictating a report for Miguel Gracia MD. PREOPERATIVE DIAGNOSIS: Left hip degenerative joint disease. POSTOPERATIVE DIAGNOSIS: Left hip degenerative joint disease. PROCEDURE PERFORMED: Left total hip arthroplasty. BRIEF HOSPITAL COURSE: This is a 74-year-old male who was indicated for the above-mentioned procedure after failing outpatient conservative measures. He did well in the operative suite. Postoperatively, he was admitted to [facility] on [address] surgical floor. Here, he worked with physical and occupational therapist. His pain was managed by the anesthesiologist group. He received postoperative antibiotics as well. On postoperative day 0, he was up to a bedside. On postoperative day #1, he was ambulating in the halls and continued to progress from there. Postoperative day #2, he was discharged home. DISCHARGE DISPOSITION: Home with family. DISCHARGE CONDITION: Stable. DISCHARGE INSTRUCTIONS: The patient will follow up with Dr. Gracia as scheduled in 2 to 3 weeks. He will keep the surgical site clean, dry, and intact until that time. He will take all medications as prescribed. DISCHARGE MEDICATIONS: See MAR. Job ID: [id number]
== END 2020-09-16 15:16 | disposition home or self-care (01) ==
LOC: SDC 09:48 → PACU-TCU 11:09 → SURG A 09-15 15:04 → SDC 09-16 15:16
PROVIDERS: ATTEND Orthopaedic Surgery
PROC: 0SRD0J9 Replacement of Left Knee Joint with Synthetic Substitute, Cemented, Open Approach (ICD-10-PCS; principal; 2020-09-14)
PROC: 8E0YXBZ Computer Assisted Procedure of Lower Extremity (ICD-10-PCS; 2020-09-14)
DX: M17.12 Unilateral primary osteoarthritis, left knee (principal); I25.10 Atherosclerotic heart disease of native coronary artery without angina pectoris; Z79.82 Long term (current) use of aspirin; Z79.899 Other long term (current) drug therapy
CPT/HCPCS: 20985; 27447; 73560; 85027; 97110 ×2; 97116 ×2; 97139 ×3; 97530; A4306; C1713; C1776; 36415; J0171; J0690; J1100; J1885; J2250; J2405; J2704; J2795; J3010; J3370; J3490; Q0163

== ENCOUNTER 2021-05-02 11:15 | Emergency (ER) | payer MEDICARE, MEDICAID ==
[~2021-05-02 11:15] MED LIST changes: -Fentanyl 100 MCG/2 ML VIAL ONE; -Heparin 10,000 UNITS/1 ML VIAL ONE; -Iopamidol 370 76% 100 ML VIAL ONE; +Iopamidol-370 76% 500 ML 1 ML ONE; -Midazolam HCl 2 mg/2 ml Vial ONE; -Nitroglycerin 100MG/250ML BOT 250 ML ONE
[2021-05-02 12:10] LABS: #Basophils 0.1 thou/uL (0.0-0.2); #Eosinphils 0.4 thou/uL (0.0-0.7); #Lymphocytes 1.1 thou/uL (1.20-3.40); #Neutrophils 8.1 thou/uL (1.40-6.50); %Basophils 0.5 % (0.0-1.0); %Eosinophils 4.1 % (0.0-10.0); %Lymphocytes 10.4 % (21.0-51.0); %Monocytes 9.2 % (0.0-10.0); %Neutrophils 75.8 % (42.0-75.0); Mean Corpuscular HGB CONC 34.5 g/dL (32.0-36.0); Mean Corpuscular Hemoglobin 33.5 pg (27.0-31.0); Mean Corpuscular Volume 97.2 fL (78.0-98.0); Mean Platelet Volume 6.8 fL (7.4-10.4); Platelet Count 236 thou/uL (130-400); RBC Distribution Width 12.8 % (11.5-14.5); Red Blood Cell (RBC) Count 4.77 mill/uL (4.70-6.10); White Blood Cell (WBC) Count 10.7 thou/uL (4.8-10.8)
[2021-05-02 12:20] LABS: ALT (SGPT) 21 U/L (8-55); AST (SGOT) 32 U/L (5-34); Albumin 4.4 g/dL (3.4-4.8); Alkaline Phosphatase 60 U/L (40-110); Anion Gap 17 mmol/L (10-20); BUN (Urea Nitrogen) 20 mg/dL (8.4-25.7); Bilirubin, Total 0.4 mg/dL (0.2-1.2); Calc. Creatinine Clearance 0 mL/min (70-130); Carbon Dioxide 25 mmol/L (23-31); Chloride 94 mmol/L (98-107); Globulin 3.2 g/dL (2.4-3.5); Glucose 101 mg/dL (83-110); Lipase 15 U/L (8-78); Potassium 3.2 mmol/L (3.5-5.1); Protein, Total 7.6 g/dL (5.8-8.1); Sodium 133 mmol/L (136-145)
[2021-05-02] MEDS ORDERED: Acetaminophen 500 MG TAB ONE (12:36)
[2021-05-02] MEDS ORDERED: Potassium Chloride 20 MEQ TAB ONE (12:58)
[2021-05-02] MEDS ORDERED: Azithromycin 250 MG TAB ONE (13:56)
[2021-05-02 15:16] LABS: Bilirubin Negative (Negative); Blood, Urine Negative (Negative); Clarity Clear (Clear); Glucose, Urine (Dipstick) Normal (Negative); Ketone, Urine Negative (Negative); Leukocyte Negative Leu/uL (Negative); Nitrite Negative (Negative); Protein, Urine (Dipstick) Negative (Neg-Trace); Specific Gravity, Urine 1.019 (1.002-1.036); Urobilinogen Normal mg/dL (Less than 2); pH, Urine 6.5 (5.0-9.0)
== END 2021-05-02 16:00 | disposition home or self-care (01) ==
LOC: ERS 11:15
DX: R19.7 Diarrhea, unspecified (principal); R53.81 Other malaise; E03.9 Hypothyroidism, unspecified; E78.5 Hyperlipidemia, unspecified; E78.00 Pure hypercholesterolemia, unspecified; I10 Essential (primary) hypertension; Z79.82 Long term (current) use of aspirin; Z79.899 Other long term (current) drug therapy
CPT/HCPCS: 36415; 74177; 80053; 81003; 83690; 84484; 85025; 86674; 87045; 87046; 87427; 87449; 93005; Q9967

== ENCOUNTER 2021-11-17 13:50 | Emergency (ER) | payer MEDICARE ==
[2021-11-17 15:41] LABS: #Eosinphils 0.3 thou/uL (0.0-0.7); #Lymphocytes 1.1 thou/uL (1.20-3.40); #Monocytes 1.1 thou/uL (0.11-0.59); #Neutrophils 8.6 thou/uL (1.40-6.50); %Basophils 0.2 % (0.0-1.0); %Eosinophils 2.5 % (0.0-10.0); %Lymphocytes 9.4 % (21.0-51.0); %Monocytes 10.2 % (0.0-10.0); %Neutrophils 77.7 % (42.0-75.0); Mean Corpuscular HGB CONC 34.3 g/dL (32.0-36.0); Mean Corpuscular Volume 96.1 fL (78.0-98.0); Mean Platelet Volume 6.2 fL (7.4-10.4); Platelet Count 322 thou/uL (130-400); RBC Distribution Width 13.1 % (11.5-14.5); Red Blood Cell (RBC) Count 4.24 mill/uL (4.70-6.10); White Blood Cell (WBC) Count 11.1 thou/uL (4.8-10.8)
[2021-11-17 16:00] LABS: ALT (SGPT) 18 U/L (8-55); AST (SGOT) 21 U/L (5-34); Albumin 4.2 g/dL (3.4-4.8); Alkaline Phosphatase 73 U/L (40-110); Anion Gap 20 mmol/L (10-20); BUN (Urea Nitrogen) 40 mg/dL (8.4-25.7); Bilirubin, Total 0.8 mg/dL (0.2-1.2); Calc. Creatinine Clearance 0 mL/min (70-130); Calcium 9.1 mg/dL (7.8-10.44); Carbon Dioxide 17 mmol/L (23-31); Chloride 103 mmol/L (98-107); Globulin 3.6 g/dL (2.4-3.5); Glucose 112 mg/dL (83-110); Lipase 7 U/L (8-78); Potassium 3.2 mmol/L (3.5-5.1); Protein, Total 7.8 g/dL (5.8-8.1); Sodium 137 mmol/L (136-145)
[2021-11-17] MEDS ORDERED: Dexamethasone 10 MG/ML VIAL ONE (17:36)
[2021-11-17 18:32] LABS: Bilirubin Negative (Negative); Blood, Urine Negative (Negative); Clarity Clear (Clear); Glucose, Urine (Dipstick) Normal (Negative); Ketone, Urine Negative (Negative); Leukocyte Negative Leu/uL (Negative); Nitrite Negative (Negative); Protein, Urine (Dipstick) Negative (Neg-Trace); Specific Gravity, Urine 1.011 (1.002-1.036); Urobilinogen Normal mg/dL (Less than 2); pH, Urine 5.5 (5.0-9.0)
[2021-11-17] MEDS ORDERED: Potassium Chloride 20 MEQ TAB ONE (19:12)
[2021-11-17] MEDS ORDERED: predniSONE 20 MG TAB ONE (19:12)
== END 2021-11-17 19:25 | disposition home or self-care (01) ==
LOC: ERS 13:50
DX: N17.9 Acute kidney failure, unspecified (principal); I12.9 Hypertensive chronic kidney disease with stage 1 through stage 4 chronic kidney disease, or unspecified chronic kidney disease; N18.2 Chronic kidney disease, stage 2 (mild); M10.9 Gout, unspecified; E87.6 Hypokalemia; E03.9 Hypothyroidism, unspecified; E78.5 Hyperlipidemia, unspecified
CPT/HCPCS: 36415; 71045; 80053; 81003; 83690; 84484; 85025; 93005; J1100; J7512

== ENCOUNTER 2021-11-19 08:41 | Emergency (ER) | payer MEDICARE ==
[2021-11-19 09:11] LABS: #Basophils 0.1 thou/uL (0.0-0.2); #Eosinphils 0.4 thou/uL (0.0-0.7); #Lymphocytes 1.7 thou/uL (1.20-3.40); #Monocytes 0.7 thou/uL (0.11-0.59); #Neutrophils 5.8 thou/uL (1.40-6.50); %Basophils 0.6 % (0.0-1.0); %Eosinophils 4.4 % (0.0-10.0); %Monocytes 8.1 % (0.0-10.0); %Neutrophils 66.8 % (42.0-75.0); Hemoglobin 13.6 g/dL (14.0-18.0); Mean Corpuscular HGB CONC 34.4 g/dL (32.0-36.0); Mean Corpuscular Hemoglobin 33.2 pg (27.0-31.0); Mean Corpuscular Volume 96.6 fL (78.0-98.0); Mean Platelet Volume 6.1 fL (7.4-10.4); Platelet Count 369 thou/uL (130-400); RBC Distribution Width 12.8 % (11.5-14.5); Red Blood Cell (RBC) Count 4.08 mill/uL (4.70-6.10); White Blood Cell (WBC) Count 8.7 thou/uL (4.8-10.8)
[2021-11-19 09:34] LABS: ALT (SGPT) 24 U/L (8-55); AST (SGOT) 36 U/L (5-34); Albumin 4.1 g/dL (3.4-4.8); Alkaline Phosphatase 63 U/L (40-110); Anion Gap 19 mmol/L (10-20); BUN (Urea Nitrogen) 39 mg/dL (8.4-25.7); Bilirubin, Total 0.3 mg/dL (0.2-1.2); CK (CPK) 233 U/L (30-200); Calc. Creatinine Clearance 0 mL/min (70-130); Calcium 8.6 mg/dL (7.8-10.44); Carbon Dioxide 17 mmol/L (23-31); Chloride 105 mmol/L (98-107); Globulin 3.8 g/dL (2.4-3.5); Glucose 90 mg/dL (83-110); Potassium 4.5 mmol/L (3.5-5.1); Protein, Total 7.9 g/dL (5.8-8.1); Sodium 136 mmol/L (136-145)
[2021-11-19 10:01] LABS: PTT 32.7 sec (22.9-36.1); Prothrombin Time 13.5 sec (12.0-14.7)
[2021-11-19] MEDS ORDERED: Iopamidol-370 76% 500 ML 1 ML ONE ×2 (15:11)
== END 2021-11-19 11:19 | disposition short-term general hospital (02) ==
LOC: ERS 08:41
DX: I63.9 Cerebral infarction, unspecified (principal); E03.9 Hypothyroidism, unspecified; E78.5 Hyperlipidemia, unspecified; E78.00 Pure hypercholesterolemia, unspecified; I10 Essential (primary) hypertension; Z79.899 Other long term (current) drug therapy; F17.200 Nicotine dependence, unspecified, uncomplicated
CPT/HCPCS: 0042T; 70450; 70496; 70498; 71045; 80053; 82550; 84484; 85025; 85610; 85730; 93005; 94760; Q9967

== ENCOUNTER 2022-02-03 11:31 | Emergency (ER) | payer MEDICARE, MEDICAID ==
[2022-02-03 12:41] LABS: #Eosinphils 0.5 thou/uL (0.0-0.7); #Lymphocytes 1.3 thou/uL (1.20-3.40); #Monocytes 0.6 thou/uL (0.11-0.59); #Neutrophils 5.4 thou/uL (1.40-6.50); %Basophils 0.1 % (0.0-1.0); %Eosinophils 6.3 % (0.0-10.0); %Lymphocytes 16.5 % (21.0-51.0); %Monocytes 8.1 % (0.0-10.0); %Neutrophils 69.1 % (42.0-75.0); Hemoglobin 11.7 g/dL (14.0-18.0); Mean Corpuscular HGB CONC 32.7 g/dL (32.0-36.0); Mean Corpuscular Hemoglobin 30.9 pg (27.0-31.0); Mean Corpuscular Volume 94.6 fL (78.0-98.0); Mean Platelet Volume 7.1 fL (7.4-10.4); Platelet Count 224 thou/uL (130-400); RBC Distribution Width 13.7 % (11.5-14.5); Red Blood Cell (RBC) Count 3.78 mill/uL (4.70-6.10); White Blood Cell (WBC) Count 7.8 thou/uL (4.8-10.8)
[2022-02-03 12:59] LABS: ALT (SGPT) 17 U/L (8-55); AST (SGOT) 13 U/L (5-34); Albumin 3.5 g/dL (3.4-4.8); Alkaline Phosphatase 122 U/L (40-110); Anion Gap 16 mmol/L (10-20); BUN (Urea Nitrogen) 9 mg/dL (8.4-25.7); Bilirubin, Total 0.6 mg/dL (0.2-1.2); CK (CPK) 30 U/L (30-200); Calc. Creatinine Clearance 0 mL/min (70-130); Calcium 9.3 mg/dL (7.8-10.44); Carbon Dioxide 23 mmol/L (23-31); Chloride 106 mmol/L (98-107); Estimated GFR 94; Globulin 2.2 g/dL (2.4-3.5); Glucose 109 mg/dL (83-110); Potassium 3.5 mmol/L (3.5-5.1); Protein, Total 5.7 g/dL (5.8-8.1); Sodium 141 mmol/L (136-145)
== END 2022-02-03 14:27 | disposition home or self-care (01) ==
LOC: ERS 11:31
DX: R45.6 Violent behavior (principal); E11.9 Type 2 diabetes mellitus without complications; E03.9 Hypothyroidism, unspecified; E78.5 Hyperlipidemia, unspecified; I10 Essential (primary) hypertension
CPT/HCPCS: 36415; 51701; 70450; 80053; 82550; 84484; 85025; 93005

== ENCOUNTER 2022-02-17 14:41 | Inpatient (IN) | payer MEDICARE, MEDICAID ==
[2022-02-17 15:56] LABS: #Eosinphils 0.3 thou/uL (0.0-0.7); #Lymphocytes 1.5 thou/uL (1.20-3.40); #Monocytes 0.5 thou/uL (0.11-0.59); #Neutrophils 4.7 thou/uL (1.40-6.50); %Basophils 0.2 % (0.0-1.0); %Lymphocytes 21.4 % (21.0-51.0); %Monocytes 7.4 % (0.0-10.0); %Neutrophils 67.1 % (42.0-75.0); Hemoglobin 11.2 g/dL (14.0-18.0); Mean Corpuscular HGB CONC 32.5 g/dL (32.0-36.0); Mean Corpuscular Hemoglobin 30.5 pg (27.0-31.0); Mean Corpuscular Volume 93.8 fL (78.0-98.0); Mean Platelet Volume 7.1 fL (7.4-10.4); Platelet Count 265 thou/uL (130-400); RBC Distribution Width 13.9 % (11.5-14.5); Red Blood Cell (RBC) Count 3.67 mill/uL (4.70-6.10); White Blood Cell (WBC) Count 6.9 thou/uL (4.8-10.8)
[2022-02-17 16:15] LABS: ALT (SGPT) 18 U/L (8-55); AST (SGOT) 14 U/L (5-34); Albumin 3.3 g/dL (3.4-4.8); Alkaline Phosphatase 113 U/L (40-110); Anion Gap 14 mmol/L (10-20); BUN (Urea Nitrogen) 12 mg/dL (8.4-25.7); Bilirubin, Total 0.3 mg/dL (0.2-1.2); Calc. Creatinine Clearance 0 mL/min (70-130); Calcium 9.2 mg/dL (7.8-10.44); Carbon Dioxide 22 mmol/L (23-31); Chloride 110 mmol/L (98-107); Estimated GFR 94; Globulin 2.6 g/dL (2.4-3.5); Glucose 124 mg/dL (83-110); Protein, Total 5.9 g/dL (5.8-8.1); Sodium 144 mmol/L (136-145)
[2022-02-17 16:20] LABS: Potassium 2.4 mmol/L (3.5-5.1)
[2022-02-17 16:50] LABS: Magnesium 1.1 mg/dL (1.6-2.6)
[2022-02-17] MEDS ORDERED: Morphine 4 MG/ML VIAL ONE (16:55)
[2022-02-17] MEDS ORDERED: Magnesium 2 GM/50 ML BAG (IN WATER) ONE (16:55)
[2022-02-17] MEDS ORDERED: Potassium Chloride 20 MEQ TAB ONE (16:55)
[2022-02-17] MEDS ORDERED: Potassium Chloride 40 MEQ in Sodium Chloride 0.9% 250 ML 250 ML IVPB SCH (18:30)
[2022-02-17 22:53] VITALS: BMI 24.1
[2022-02-17 23:34] LABS: Anion Gap 14 mmol/L (10-20); BUN (Urea Nitrogen) 10 mg/dL (8.4-25.7); Calc. Creatinine Clearance 89 mL/min (70-130); Calcium 9.3 mg/dL (7.8-10.44); Carbon Dioxide 23 mmol/L (23-31); Chloride 109 mmol/L (98-107); Estimated GFR 93; Glucose 124 mg/dL (83-110); Magnesium 1.3 mg/dL (1.6-2.6); Potassium 3.2 mmol/L (3.5-5.1); Sodium 143 mmol/L (136-145)
[2022-02-17] MEDS ORDERED: Electrolyte Replacement Protocol 1 EACH FS SCH (23:45)
[2022-02-17] MEDS ORDERED: Acetaminophen 325 MG TAB PO PRN (23:51)
[2022-02-17] MEDS ORDERED: Ondansetron PF 4 MG/2 ML Vial IVP PRN (23:51)
[2022-02-17] MEDS ORDERED: Dextrose 5% in Water 1,000 ML IV PRN (23:59)
[2022-02-17] MEDS ORDERED: Dextrose 50% Abboject 50 ML SYRINGE SLOW IVP PRN (23:59)
[2022-02-17] MEDS ORDERED: HumaLOG 300 UNITS/3 ML VIAL SC PRN (23:59)
[2022-02-18] MEDS: Lorazepam 0.5 MG TAB PO PRN ×2 (00:13→21:49)
[2022-02-18] MEDS: hydrALAZINE 25 MG TAB PO SCH ×2 (00:13→21:59)
[2022-02-18] MEDS ORDERED: Magnesium 2 GM/50 ML(in water) 2 GM in Premix Bag 1 BAG IVPB SCH ×2 (00:30→02:00)
[2022-02-18] MEDS: Potassium Chloride 20 MEQ in Premix Bag 1 BAG IVPB SCH ×2 (01:04→03:50)
[2022-02-18] MEDS: Levothyroxine Sodium 75 MCG TAB PO SCH (05:43)
[2022-02-18] MEDS ORDERED: Non-Formulary Item 1 EACH (Levothyroxine Sodium [Levothyroxine] 75 MCG Capsule) PO SCH (06:00)
[2022-02-18 07:25] LABS: #Eosinphils 0.5 thou/uL (0.0-0.7); #Lymphocytes 2.4 thou/uL (1.20-3.40); #Monocytes 0.6 thou/uL (0.11-0.59); #Neutrophils 4.9 thou/uL (1.40-6.50); %Basophils 0.1 % (0.0-1.0); %Eosinophils 6.4 % (0.0-10.0); %Lymphocytes 28.2 % (21.0-51.0); %Neutrophils 58.3 % (42.0-75.0); Hemoglobin 10.4 g/dL (14.0-18.0); Mean Corpuscular HGB CONC 32.3 g/dL (32.0-36.0); Mean Corpuscular Hemoglobin 30.4 pg (27.0-31.0); Mean Platelet Volume 7.1 fL (7.4-10.4); Platelet Count 260 thou/uL (130-400); RBC Distribution Width 14.1 % (11.5-14.5); Red Blood Cell (RBC) Count 3.42 mill/uL (4.70-6.10); White Blood Cell (WBC) Count 8.3 thou/uL (4.8-10.8)
[2022-02-18] MEDS ORDERED: Non-Formulary Item 1 EACH (Prednisone [Prednisone] 10 MG Tablet) PO SCH (07:30)
[2022-02-18 07:45] LABS: Anion Gap 12 mmol/L (10-20); BUN (Urea Nitrogen) 11 mg/dL (8.4-25.7); Calc. Creatinine Clearance 91 mL/min (70-130); Calcium 9.4 mg/dL (7.8-10.44); Carbon Dioxide 25 mmol/L (23-31); Chloride 110 mmol/L (98-107); Estimated GFR 93; Glucose 91 mg/dL (83-110); Potassium 3.6 mmol/L (3.5-5.1); Sodium 143 mmol/L (136-145)
[2022-02-18] MEDS ORDERED: hydrALAZINE 25 MG TAB PO SCH (09:00)
[2022-02-18] MEDS ORDERED: Colchicine 0.6 MG TAB PO SCH (09:00)
[2022-02-18] MEDS ORDERED: predniSONE 20 MG TAB PO SCH (09:00)
[2022-02-18] MEDS: Allopurinol 300 MG TAB PO SCH (10:12)
[2022-02-18] MEDS: Magnesium Oxide 400 MG TAB PO SCH ×2 (10:12→21:50)
[2022-02-18] MEDS: Apixaban 5 MG TAB PO SCH ×2 (10:13→21:59)
[2022-02-18] MEDS: Lisinopril 20 MG TAB PO SCH (10:13)
[2022-02-18] MEDS: Atorvastatin Calcium 40 MG TAB PO SCH (10:13)
[2022-02-18] MEDS: DULoxetine 60 MG CAP PO SCH (10:13)
[2022-02-18] MEDS: Potassium Chloride 20 MEQ TAB PO SCH (10:13)
[2022-02-18] MEDS: hydrOXYzine 25 MG TAB PO SCH ×3 (10:13→21:50)
[2022-02-18] MEDS ORDERED: Acetaminophen/Codeine 30-300mg Tablet PO PRN (10:34)
[2022-02-18] MEDS: Pancrelipase DR 12,000 1 CAP PO SCH ×2 (12:59→16:31)
[2022-02-18] MEDS: methylPREDNISolone Sod Succ 40 MG VIAL IVP SCH ×2 (14:37→21:49)
[2022-02-19 04:44] LABS: #Monocytes 0.1 thou/uL (0.11-0.59); #Neutrophils 8.2 thou/uL (1.40-6.50); %Basophils 0.2 % (0.0-1.0); %Eosinophils 0.2 % (0.0-10.0); %Lymphocytes 10.4 % (21.0-51.0); %Monocytes 0.7 % (0.0-10.0); %Neutrophils 88.5 % (42.0-75.0); Hemoglobin 11.8 g/dL (14.0-18.0); Mean Corpuscular HGB CONC 34.6 g/dL (32.0-36.0); Mean Corpuscular Hemoglobin 31.8 pg (27.0-31.0); Mean Corpuscular Volume 91.9 fL (78.0-98.0); Mean Platelet Volume 7.3 fL (7.4-10.4); Platelet Count 299 thou/uL (130-400); RBC Distribution Width 13.7 % (11.5-14.5); White Blood Cell (WBC) Count 9.2 thou/uL (4.8-10.8)
[2022-02-19 05:10] LABS: Anion Gap 16 mmol/L (10-20); BUN (Urea Nitrogen) 11 mg/dL (8.4-25.7); Calc. Creatinine Clearance 91 mL/min (70-130); Calcium 9.5 mg/dL (7.8-10.44); Carbon Dioxide 23 mmol/L (23-31); Chloride 104 mmol/L (98-107); Estimated GFR 93; Glucose 147 mg/dL (83-110); Magnesium 1.5 mg/dL (1.6-2.6); Potassium 3.7 mmol/L (3.5-5.1); Sodium 139 mmol/L (136-145)
[2022-02-19] MEDS ORDERED: hydrALAZINE 20 MG/ML VIAL SLOW IVP PRN (05:11)
[2022-02-19] MEDS: Levothyroxine Sodium 75 MCG TAB PO SCH (05:29)
[2022-02-19] MEDS: methylPREDNISolone Sod Succ 40 MG VIAL IVP SCH ×3 (05:29→22:25)
[2022-02-19] MEDS: HumaLOG 300 UNITS/3 ML VIAL SC PRN ×2 (06:07→11:35)
[2022-02-19] MEDS ORDERED: Magnesium 2 GM/50 ML(in water) 2 GM in Premix Bag 1 BAG IVPB SCH (08:00)
[2022-02-19] MEDS: Magnesium Oxide 400 MG TAB PO SCH ×2 (08:34→22:25)
[2022-02-19] MEDS: hydrOXYzine 25 MG TAB PO SCH ×3 (08:34→22:25)
[2022-02-19] MEDS: Apixaban 5 MG TAB PO SCH ×2 (08:34→22:25)
[2022-02-19] MEDS: Lisinopril 20 MG TAB PO SCH (08:34)
[2022-02-19] MEDS: Allopurinol 300 MG TAB PO SCH (08:34)
[2022-02-19] MEDS: Atorvastatin Calcium 40 MG TAB PO SCH (08:35)
[2022-02-19] MEDS: DULoxetine 60 MG CAP PO SCH (08:35)
[2022-02-19] MEDS: Potassium Chloride 20 MEQ TAB PO SCH (08:36)
[2022-02-19] MEDS ORDERED: predniSONE 5 MG TAB PO SCH (09:00)
[2022-02-19] MEDS ORDERED: cloNIDine 0.3mg/24 Hour PATCH TD SCH (09:00)
[2022-02-19] MEDS: Pancrelipase DR 12,000 1 CAP PO SCH ×3 (10:08→19:04)
[2022-02-19] MEDS ORDERED: Amlodipine 10 MG TAB PO SCH (16:00)
[2022-02-20] MEDS: hydrALAZINE 25 MG TAB PO SCH (00:56)
[2022-02-20 04:56] LABS: #Lymphocytes 0.9 thou/uL (1.20-3.40); #Monocytes 0.2 thou/uL (0.11-0.59); #Neutrophils 13.4 thou/uL (1.40-6.50); %Basophils 0.3 % (0.0-1.0); %Eosinophils 0.1 % (0.0-10.0); %Lymphocytes 6.2 % (21.0-51.0); %Monocytes 1.5 % (0.0-10.0); %Neutrophils 91.9 % (42.0-75.0); Hemoglobin 11.5 g/dL (14.0-18.0); Mean Corpuscular HGB CONC 33.4 g/dL (32.0-36.0); Mean Corpuscular Hemoglobin 30.8 pg (27.0-31.0); Mean Corpuscular Volume 92.2 fL (78.0-98.0); Mean Platelet Volume 7.5 fL (7.4-10.4); Platelet Count 278 thou/uL (130-400); Red Blood Cell (RBC) Count 3.73 mill/uL (4.70-6.10); White Blood Cell (WBC) Count 14.6 thou/uL (4.8-10.8)
[2022-02-20 05:16] LABS: Anion Gap 13 mmol/L (10-20); BUN (Urea Nitrogen) 18 mg/dL (8.4-25.7); Calc. Creatinine Clearance 98 mL/min (70-130); Calcium 9.4 mg/dL (7.8-10.44); Carbon Dioxide 24 mmol/L (23-31); Chloride 103 mmol/L (98-107); Estimated GFR 95; Glucose 155 mg/dL (83-110); Magnesium 1.8 mg/dL (1.6-2.6); Potassium 3.5 mmol/L (3.5-5.1); Sodium 136 mmol/L (136-145)
[2022-02-20] MEDS: Levothyroxine Sodium 75 MCG TAB PO SCH (06:14)
[2022-02-20] MEDS: methylPREDNISolone Sod Succ 40 MG VIAL IVP SCH ×3 (06:14→22:58)
[2022-02-20] MEDS ORDERED: Magnesium 2 GM/50 ML(in water) 2 GM in Premix Bag 1 BAG IVPB SCH (08:00)
[2022-02-20] MEDS ORDERED: Potassium Chloride 20 MEQ TAB PO SCH (08:00)
[2022-02-20] MEDS: hydrOXYzine 25 MG TAB PO SCH ×3 (09:04→22:58)
[2022-02-20] MEDS: Allopurinol 300 MG TAB PO SCH (09:04)
[2022-02-20] MEDS: Atorvastatin Calcium 40 MG TAB PO SCH (09:04)
[2022-02-20] MEDS: Magnesium Oxide 400 MG TAB PO SCH ×2 (09:04→22:58)
[2022-02-20] MEDS: Lisinopril 20 MG TAB PO SCH (09:04)
[2022-02-20] MEDS: Apixaban 5 MG TAB PO SCH ×2 (09:05→22:58)
[2022-02-20] MEDS: Amlodipine 10 MG TAB PO SCH (09:05)
[2022-02-20] MEDS: DULoxetine 60 MG CAP PO SCH (09:05)
[2022-02-20] MEDS: Pancrelipase DR 12,000 1 CAP PO SCH ×3 (09:44→17:48)
[2022-02-20] MEDS: Potassium Chloride 20 MEQ TAB PO SCH (09:57)
[2022-02-20] MEDS: HumaLOG 300 UNITS/3 ML VIAL SC PRN (12:56)
[2022-02-20 14:26] LABS: Potassium 3.6 mmol/L (3.5-5.1)
[2022-02-20] MEDS: Colchicine 0.6 MG TAB PO SCH (22:57)
[2022-02-21] MEDS: methylPREDNISolone Sod Succ 40 MG VIAL IVP SCH ×3 (05:52→21:30)
[2022-02-21] MEDS: Levothyroxine Sodium 75 MCG TAB PO SCH (05:52)
[2022-02-21 06:38] LABS: Magnesium 1.8 mg/dL (1.6-2.6)
[2022-02-21] MEDS ORDERED: Magnesium 2 GM/50 ML(in water) 2 GM in Premix Bag 1 BAG IVPB SCH (08:00)
[2022-02-21] MEDS: Apixaban 5 MG TAB PO SCH ×2 (08:39→21:30)
[2022-02-21] MEDS: Atorvastatin Calcium 40 MG TAB PO SCH (08:39)
[2022-02-21] MEDS: Colchicine 0.6 MG TAB PO SCH (08:39)
[2022-02-21] MEDS: Lisinopril 20 MG TAB PO SCH (08:39)
[2022-02-21] MEDS: Allopurinol 300 MG TAB PO SCH (08:39)
[2022-02-21] MEDS: Potassium Chloride 20 MEQ TAB PO SCH (08:40)
[2022-02-21] MEDS: hydrOXYzine 25 MG TAB PO SCH ×3 (08:40→21:30)
[2022-02-21] MEDS: Amlodipine 10 MG TAB PO SCH (08:40)
[2022-02-21] MEDS: DULoxetine 60 MG CAP PO SCH (08:40)
[2022-02-21] MEDS: Magnesium Oxide 400 MG TAB PO SCH ×2 (08:40→21:30)
[2022-02-21] MEDS: Pancrelipase DR 12,000 1 CAP PO SCH ×3 (09:53→17:27)
[2022-02-21] MEDS: HumaLOG 300 UNITS/3 ML VIAL SC PRN (17:29)
[2022-02-22] MEDS: Levothyroxine Sodium 75 MCG TAB PO SCH (06:00)
[2022-02-22] MEDS: methylPREDNISolone Sod Succ 40 MG VIAL IVP SCH ×2 (06:00→14:29)
[2022-02-22] MEDS: Atorvastatin Calcium 40 MG TAB PO SCH (08:31)
[2022-02-22] MEDS: Pancrelipase DR 12,000 1 CAP PO SCH ×3 (08:31→16:42)
[2022-02-22] MEDS: DULoxetine 60 MG CAP PO SCH (08:31)
[2022-02-22] MEDS: Apixaban 5 MG TAB PO SCH (08:32)
[2022-02-22] MEDS: hydrOXYzine 25 MG TAB PO SCH ×2 (08:32→14:29)
[2022-02-22] MEDS: Amlodipine 10 MG TAB PO SCH (08:32)
[2022-02-22] MEDS: Potassium Chloride 20 MEQ TAB PO SCH (08:32)
[2022-02-22] MEDS: Allopurinol 300 MG TAB PO SCH (08:32)
[2022-02-22] MEDS: Lisinopril 20 MG TAB PO SCH (08:32)
[2022-02-22] MEDS: Magnesium Oxide 400 MG TAB PO SCH (08:33)
[2022-02-22 09:33] LABS: Anion Gap 14 mmol/L (10-20); BUN (Urea Nitrogen) 26 mg/dL (8.4-25.7); Calc. Creatinine Clearance 93 mL/min (70-130); Calcium 9.2 mg/dL (7.8-10.44); Carbon Dioxide 24 mmol/L (23-31); Chloride 100 mmol/L (98-107); Estimated GFR 93; Glucose 158 mg/dL (83-110); Potassium 3.6 mmol/L (3.5-5.1); Sodium 134 mmol/L (136-145)
[2022-02-22 09:43] LABS: Hemoglobin 12.8 g/dL (14.0-18.0); Mean Corpuscular HGB CONC 32.5 g/dL (32.0-36.0); Mean Corpuscular Hemoglobin 30.1 pg (27.0-31.0); Mean Corpuscular Volume 92.5 fL (78.0-98.0); Mean Platelet Volume 8.2 fL (7.4-10.4); Platelet Count 320 thou/uL (130-400); RBC Distribution Width 13.9 % (11.5-14.5); Red Blood Cell (RBC) Count 4.26 mill/uL (4.70-6.10); White Blood Cell (WBC) Count 23.9 thou/uL (4.8-10.8)
[2022-02-22 12:00] LABS: Band 2 % (5-11); Lymphocytes 7 % (21-51); MDiff Complete? YES; Monocytes 2 % (0-10); Neutrophil 89 % (42-75); Platelet Morphology Comment Appears Adequate; Polychromasia SLIGHT = 2-3 cells (100X) (0-2/hpf)
[2022-02-22 16:14] VITALS: BP 120/67; TEMP 97.7
[2022-02-22] MEDS: HumaLOG 300 UNITS/3 ML VIAL SC PRN (16:42)
== END 2022-02-22 17:25 | disposition home or self-care (01) | DRG 554 ==
LOC: ERS 14:41 → 2NO 19:30 → OBSVTOIN 02-19 15:08 → T4-A 02-20 16:53
PROVIDERS: ADMIT Internal Medicine; ATTEND Internal Medicine
DX: M10.041 Idiopathic gout, right hand (principal); I82.621 Acute embolism and thrombosis of deep veins of right upper extremity; I69.951 Hemiplegia and hemiparesis following unspecified cerebrovascular disease affecting right dominant side; Z20.822 Contact with and (suspected) exposure to COVID-19; I10 Essential (primary) hypertension; E78.5 Hyperlipidemia, unspecified; E11.9 Type 2 diabetes mellitus without complications; E03.9 Hypothyroidism, unspecified; F32.A Depression, unspecified; E83.42 Hypomagnesemia; E87.6 Hypokalemia; Z96.653 Presence of artificial knee joint, bilateral; Z90.49 Acquired absence of other specified parts of digestive tract; I69.920 Aphasia following unspecified cerebrovascular disease; Z79.01 Long term (current) use of anticoagulants; Z79.899 Other long term (current) drug therapy; Z79.52 Long term (current) use of systemic steroids; Z79.890 Hormone replacement therapy; Z79.84 Long term (current) use of oral hypoglycemic drugs
CPT/HCPCS: 36415; 36416; 80048; 80053; 83735; 85025; 93005; 96365; 96366; 96367; 96375; 96376; G0378; J0360; J1815; J2270; J2920; J3475; J3480; J7050; J7512; U0003; U0005